=== PATIENT | female | born 1995 | race Caucasian/White ===

== ENCOUNTER → 2017-04-17 | Outpatient (CLI) | payer BC ==
--- NOTE | 2017-04-17 14:22 | XR ---
EXAMINATION TYPE: XR finger LT DATE OF EXAM: 04/17/2017 COMPARISON: NONE HISTORY: Pain in the first metacarpal phalangeal joint for 4 to 6 weeks TECHNIQUE: 2 views of the left finger were obtained. FINDINGS: There is no evidence of fracture or dislocation. No soft tissue swelling is appreciated. Th ere is no evidence of joint space narrowing, sclerosis, or marginal osteophytes. No erosion is seen. IMPRESSION: No radiographic abnormality to correlate with the patient's symptoms. If tendinous or lig amentous injury is suspected nonemergent MR could be performed.
== END | disposition home or self-care (01) ==
LOC: RADXRYALE 13:37
PROVIDERS: ATTEND Physician Assistant Medical
DX: M79.645 Pain in left finger(s) (principal)